=== PATIENT | female | born 1990 | race African-American/Black ===

== ENCOUNTER 2016-04-23 06:32 | Inpatient (IN) | payer OTHER ==
[2016-04-23] MEDS ORDERED: OXYTOCIN/DEXTROSE 5%-WATER 30 UNITS/500 ML BAG IV ONE ×3 (06:50→12:16)
[2016-04-23] MEDS ORDERED: ONDANSETRON HCL/PF 2 MG/ML VIAL IV PRN ×2 (06:50→07:14)
[2016-04-23] MEDS ORDERED: LIDOCAINE HCL 50 ML VIAL PERI PRN (06:50)
[2016-04-23] MEDS ORDERED: RINGERS SOLUTION,LACTATED 1,000 ML IV ONE (06:50)
[2016-04-23] MEDS ORDERED: NALOXONE HCL 1 MG/1 ML SYRG IV PRN (07:14)
[2016-04-23] MEDS ORDERED: BUPIVACAINE HCL/0.9 % NACL/PF 250 ML EP PRN (07:14)
[2016-04-23] MEDS ORDERED: fentaNYL CITRATE/PF 50 MCG/ML AMPUL IT SCH (07:15)
[2016-04-23] MEDS: DEXTROSE 5%-LACTATED RINGERS 1,000 ML IV PRN ×2 (07:45→11:42)
[2016-04-23 07:51] LABS: Cocaine Ur Negative (NEGATIVE); Urine Barbiturate Negative (NEGATIVE); Urine Benzodiazepines Negative (NEGATIVE); Urine Opiates Negative (NEGATIVE); Urine PCP Negative (NEGATIVE); Urine THC Positive (NEGATIVE)
--- NOTE | 2016-04-23 09:22 | OR ---
Anesthesia Procedure Note - Anesthesia Procedure Note Narrative: Vital Signs - Last Taken Temp 36.4 C L 06/15/15 07:00 Pulse Resp BP 119/79 06/15/15 07:00 Pulse Ox 04/23/16 09:21 ANESTHESIA PROCEDURE NOTE Date of Procedure: 04/23/2016 Time of procedure: 10 10. Performed by: Riley Barnhart CRNA Ground Operations Supervisor: None. Preprocedure diagnosis: Active labor. Post procedure diagnosis: Same. Procedure: Insertion of labor epidural. Indications: The patient is a 26 -year-old multigravida female in active labor requesting labor epidural for pain management. Findings: See below. Details of the procedure: The patient was placed in a sitting position. Back was prepped with DuraPrep. Patient was then draped in a sterile fashion. Lidocaine 1% was infiltrated to the skin and subcutaneous tissues at the level of the L3 4 interspace. The epidural space was identified using a 18-gauge Tuohy needle with [id number] technique. 20 mcg fentanyl was given intrathecally using a 27 ga. spinal needle. Epidural catheter was inserted without difficulty. Negative test dose was elicited using 5 mL of 1.5% preservative-free lidocaine plus epinephrine 1 200,000. The epidural catheter was then taped and secured in place. EBL: Minimal. Fluids: N/A. Specimen: N/A. Post procedure condition: The patient tolerated the procedure well. No complications were noted. Thank you for this consultation. Brown CRNA
--- NOTE | 2016-04-23 10:51 | PN ---
Progess Note - Interim Narrative: 04/23/16 10:49 Patient comfortable with epidural Vital signs stable. Pitocin at 6 mu/min. FHT: 135 baseline, reassuring Contractions q 2-3 min Cervix: 8/90/-2 Impression: Intrauterine at 38-2/7 weeks in labor. Smoker. THC positive. Plan: Anticipate normal spontaneous vaginal delivery within the next 1-2 hours.
[2016-04-23] MEDS ORDERED: HYDROCORTISONE 30 APPL TUBE TP PRN (12:16)
[2016-04-23] MEDS ORDERED: SENNOSIDES 8.6 MG TABLET PO PRN (12:16)
[2016-04-23] MEDS ORDERED: BENZOCAINE/MENTHOL 81 SPRAY CAN TP PRN (12:16)
[2016-04-23] MEDS ORDERED: oxyCODONE HCL/ACETAMINOPHEN 1 TAB TABLET PO PRN ×2 (12:16)
[2016-04-23] MEDS ORDERED: GLYCERIN/WITCH HAZEL LEAF 40 APPL BOX TP PRN (12:16)
[2016-04-23] MEDS ORDERED: BISACODYL 10 MG SUPP.RECT RC PRN (12:16)
[2016-04-23] MEDS: IBUPROFEN 800 MG TABLET PO PRN ×2 (14:09→21:12)
--- NOTE | 2016-04-23 15:17 | OR ---
Operative Report - Dictated Report Narrative: Spontaneous vaginal delivery of viable female at 1157 on 04/23/2016 with Apgars 7 and 7, weighing 2015 g in LEONEL position with a compound hand presentation and tight nuchal cord 1. 72 seconds between delivery of head and body due to entrapment of left arm. Cord clamping delayed 1 minute. Resuscitation began on perineum. Placenta delivered complete, intact, with three vessel cord Estimated blood loss: less than 50 ml Lacerations: None
[2016-04-23] MEDS: DOCUSATE SODIUM 100 MG CAPSULE PO SCH (21:12)
[2016-04-24] MEDS: IBUPROFEN 800 MG TABLET PO PRN ×2 (04:59→17:03)
[2016-04-24] MEDS: DOCUSATE SODIUM 100 MG CAPSULE PO SCH ×2 (09:00→20:42)
--- NOTE | 2016-04-24 09:17 | PN ---
Subjective - Date and Time Seen Date: 04/24/16 Subjective Narrative: day 1, s/p doing well. no complaints. bottle feeding. normal lochia, Objective - Vitals Vitals: Last Vital Signs Temp 37.2 C 04/24/16 07:20 Pulse 70 04/24/16 07:20 Resp 18 04/24/16 07:20 BP 148/70 04/24/16 07:20 Pulse Ox 97 04/24/16 07:20 - Exam Constitutional: Present: Oriented x3, Cooperative Respiratory: Present: no respiratory distress Cardiovascular/Chest: Present: normal peripheral pulses Abdomen: Present: soft, nontender, nondistended, firm - fundus firm at umbilicus Extremity: Present: normal range of motion, no pedal edema, no calf tenderness Skin Exam: Present: normal color, warm/dry, no cyanosis Eye contact: Present: cooperative, good eye contact, normal speech Cauti Physician Documentation - Urinary Catheter Management Urethral ([place]) Date of Insertion: 04/23/16 Time of Insertion: 08:02 Date of Removal: 04/23/16 Time of Removal: 11:50 Assessment/Plan Plan Narrative: A: day 1, s/p , stable. Plan: routine care. ambulation encouraged. Fanta Davis MD
[2016-04-25] MEDS: IBUPROFEN 800 MG TABLET PO PRN (00:50)
[2016-04-25 08:31] VITALS: BP 94/53
[2016-04-25] MEDS: DOCUSATE SODIUM 100 MG CAPSULE PO SCH (09:00)
--- NOTE | 2016-04-25 09:45 | PN ---
Subjective - Date and Time Seen Date: 04/25/16 Subjective Narrative: day 2, s/p doing well. no complaints. bottle feeding. normal lochia. Objective - Vitals Vitals: Last Vital Signs Temp 36.8 C 04/25/16 08:00 Pulse 78 04/25/16 08:00 Resp 20 04/25/16 08:00 BP 94/53 04/25/16 08:00 Pulse Ox 98 04/25/16 08:00 - Exam Constitutional: Present: Alert, Oriented x3, Cooperative Respiratory: Present: no respiratory distress Cardiovascular/Chest: Present: normal peripheral pulses Abdomen: Present: soft, nontender, nondistended, other - fundus firm at umbilicus Extremity: Present: normal range of motion, no pedal edema, no calf tenderness Eye contact: Present: cooperative, good eye contact, normal speech Cauti Physician Documentation - Urinary Catheter Management Urethral ([place]) Date of Insertion: 04/23/16 Time of Insertion: 08:02 Date of Removal: 04/23/16 Time of Removal: 11:50 Assessment/Plan Plan Narrative: A: day 2, s/p stable and well. Plan: will discharge home today. Fanta Davis MD
== END 2016-04-25 15:45 | disposition home or self-care (01) | DRG 775 ==
LOC: OBCLINIC 06:32 → OB 06:42 → MS 04-24 19:30
PROVIDERS: ADMIT Obstetrics & Gynecology; ATTEND Obstetrics & Gynecology
PROC: 10E0XZZ Delivery of Products of Conception, External Approach (ICD-10-PCS; principal; 2016-04-23)
PROC: 4A1HXCZ Monitoring of Products of Conception, Cardiac Rate, External Approach (ICD-10-PCS; 2016-04-23)
PROC: 3E0S3CZ (ICD-10-PCS; 2016-04-23)
DX: O69.1XX0 Labor and delivery complicated by cord around neck, with compression, not applicable or unspecified (principal); O99.324 Drug use complicating childbirth; O99.02 Anemia complicating childbirth; D50.8 Other iron deficiency anemias; O99.334 Smoking (tobacco) complicating childbirth; F12.10 Cannabis abuse, uncomplicated; Z3A.38 38 weeks gestation of pregnancy; Z37.0 Single live birth